=== PATIENT | male | born 2000 | race African-American/Black ===

== ENCOUNTER 2020-09-16 09:30 | Emergency (ER) | payer SELFPAY ==
[~2020-09-16] VITALS: Ht 175.3 cm; Wt 68.0 kg
--- NOTE | 2020-09-16 10:09 | NUR ---
ED Nurse Note: Patient walked into ER due to laceration on the right hand. Patient was riding a skateboard, lost balance and fell. Denies head injury or any other injury. Patient able to make a fist on the right hand, wiggle right fingers and CMS remained intact. Approximately 1.5cm laceration on the right knuckle, 3rd digit noted and bleeding controlled. Patient sitting in bed without facial grimacing or guarding .
[2020-09-16] MEDS ORDERED: BACITRACIN15 GM TOPIC (11:03)
--- NOTE | 2020-09-16 11:08 | NUR ---
ED Nurse Note: bacitracin applied per ems and site dressed, pt is clear for discharge per ermd. pt verbalized understanding of discharge and prescription instructions. pt id band removed. pt able to ambulate with steady gait, aox4 on room air. pt took all belongings
[2020-09-16 11:10] VITALS: BP 110/69
[2020-09-16] MEDS ORDERED: Bacitracin Oint UD TOPIC ONE (11:15)
--- NOTE | 2020-09-16 14:09 | Diagnostic Imaging Report ---
Indication: Right hand pain Technique: 3 views right hand Comparison: none Findings: Visual healed fracture deformity of the fifth metacarpal. No acute fractures. No dislocations. The joint spaces are preserved. Impression: No acute bony trauma
--- NOTE | 2020-09-22 13:58 | Emergency Room Report ---
History of Present Illness General Chief Complaint: Upper Extremity Injury Source: Patient Present Illness HPI 19-year-old male presents status post fall. Patient fell off his skateboard today and put out his right hand. Has a laceration to his right hand. Tetanus is up-to-date. Pain is dull, 7 out of 10, nonradiating. Denies any other injuries. No other aggravating relieving factors. Denies any other associated symptoms Allergies: Coded Allergies: No Known Allergies (Unverified , 09/16/20) COVID-19 Screening Contact w/high risk pt: No Experienced COVID-19 symptoms?: No COVID-19 Testing performed HEAD CAGER: No Patient History Past Medical History: none Past Surgical History: none Pertinent Family History: none Social History: Denies: smoking, alcohol use, drug use Immunizations: UTD Reviewed Nursing Documentation: PMH: Agreed; PSxH: Agreed Nursing Documentation-PMH Past Medical History: No Stated History Review of Systems All Other Systems: negative except mentioned in HPI Physical Exam Sp02 EP Interpretation: reviewed, normal General Appearance: no apparent distress, alert, GCS 15, non-toxic Head: normocephalic Eyes: bilateral eye normal inspection, bilateral eye PERRL ENT: normal ENT inspection Neck: normal inspection Respiratory: normal inspection Cardiovascular #1: normal inspection Gastrointestinal: normal inspection Rectal: deferred Genitourinary: no CVA tenderness Musculoskeletal: tender Neurologic: alert, motor strength/tone normal, oriented x3, sensory intact, responsive, speech normal Psychiatric: normal inspection Skin: laceration - 1.5 cm laceration to right knuckle Lymphatic: normal inspection Procedures Laceration/Wound Repair Laceration/Wound Repair : Consent: Verbal Wound Location: upper extremity - Right hand Wound's Depth, Shape: linear Wound Explored: no foreign body removed Betadine Prep?: Yes Anesthesia: 1% Lidocaine Wound Debrided: minimal Wound Repaired With: sutures Suture Size/Type: 4:0, proline Layer Closure?: No Sterile Dressing Applied?: Yes Splint Applied?: No Sling Applied?: No Patient Tolerated: Well Complications: None Medical Decision Making Diagnostic Impression: Primary Impression: Laceration of hand Qualified Codes: S61.411A - Laceration without foreign body of right hand, initial encounter ER Course Hospital Course 19-year-old male presents with laceration to right hand status post fall Differential diagnoses include: Fracture, dislocation, sprain, contusion Clinical course Patient placed on stretcher. After initial history and physical, I ordered pain medications and Xrays of R hand Xrays prelim read shows no acute fracture/dislocation. Laceration repaired without complication. Bacitracin dressing applied. Discussed findings with patient. Safe for discharge close outpatient follow-up. Diagnosis - laceration of hand Stable and discharged to home with prescription for Bacitracin. Wound care instructions given. Return to ED in 12 to 14 days for suture removal. Followup with PMD. Return to ED if symptoms recur or worsen Other X-Ray Diagnostic Results Other X-Ray Diagnostic Results : X-Ray ordered: Right hand # of Views/Limited Vs Complete: 3 View Indication: Pain EP Interpretation: Yes Interpretation: no dislocation, no soft tissue swelling, no fractures Impression: No acute disease Electronically Signed by: Electronically signed by Pankaj Hernandez MD Status: improved Disposition: HOME, SELF-CARE Condition: Stable Scripts Bacitracin (Bacitracin) 28.4 Gm Oint...g. 1 APPLIC TOPIC THREE TIMES A DAY, #28.4 GM Prov: Pankaj Hernandez MD 09/16/20 Referrals: NOT CHOSEN IPA/,REFERRING (PCP) [facility] Patient Instructions: Laceration Care, Adult, [id number] Pankaj Hernandez MD Sep 22, 2020 13:58
== END 2020-09-16 11:08 | disposition home or self-care (01) ==
LOC: EMR 10:10
DX: S61.411A Laceration without foreign body of right hand, initial encounter (principal); V00.131A Fall from skateboard, initial encounter; Y92.9 Unspecified place or not applicable
CPT/HCPCS: 99283